=== PATIENT | male | born 1970 | race Caucasian/White ===

== ENCOUNTER 2022-05-24 15:10 | Emergency (ER) | payer OTHER, SELFPAY ==
--- NOTE | ~2022-05-24 | XR_ITS ---
EXAMINATION: XR hand RT min 3V INDICATION: Traumatic amputation of the second finger TECHNIQUE: Three views of the right hand are obtained. COMPARISON: None available FINDINGS: There is traumatic amputation of the second finger at the distal neck of the proximal phala nx. The amputated portion of the finger is included on the examination and demonstrates a comminuted fracture at the distal aspect of the second proximal phalanx extending to the proximal interphalangea l joint. No additional acute osseous findings are evident. IMPRESSION: 1. Traumatic amputation of the second finger at the distal neck of the proximal phalanx. Reviewed, dictated and finalized at location B.
--- NOTE | 2022-05-24 15:20 | ED.UPPEXIN ---
HPI - Extremity Injury (Upper) General Chief Complaint: Extremity Injury, Upper <Nawaf Gilman APRN - Last Filed: 05/24/22 16:23> Stated Complaint: amputation to right first digit <Nawaf Gilman APRN - Last Filed: 05/24/22 16:23> Time Seen by Provider: 05/24/22 15:16 <Nawaf Gilman APRN - Last Filed: 05/24/22 16:23> History of Present Illness HPI narrative: 51-year-old male presents the emergency room for evaluation of injury to his right index finger. Patient states that he was using a saw when he accidentally amputated his right index finger. Patient immediately put the digit on ice prior to arrival. <Nawaf Gilman APRN - Last Filed: 05/24/22 16:23> Related Data Home Medications: Home Medications Medication Instructions Recorded Confirmed famotidine 20 mg tablet (Pepcid) 20 mg PO DAILY 05/24/22 <Nawaf Gilman APRN - Last Filed: 05/24/22 16:23> Allergies/Adverse Reactions: Allergies Allergy/AdvReac Type Severity Reaction Status Date / Time No Known Allergies Allergy Verified 05/24/22 15:24 <Nawaf Gilman APRN - Last Filed: 05/24/22 16:23> Review of Systems Review of Systems: CONSTITUTIONAL: Denies fever, chills, or sweats. EYES: Denies visual changes, redness, or discharge. ENT: Denies rhinorrhea, congestion, sore throat, or otalgia. CARDIOVASCULAR: Denies chest pain, palpitations, or edema. RESPIRATORY: Denies cough or dyspnea. GASTROINTESTINAL: Denies abdominal pain, nausea, vomiting, or diarrhea. GENITOURINARY: Denies dysuria or hematuria. SKIN: Denies rash or itching. MUSCULOSKELETAL: Denies back pain, joint pain, or myalgia. NEUROLOGIC: Denies headache, numbness, dizziness, or weakness. PSYCHIATRIC: Denies anxiety or depression. <Nawaf Gilman APRN - Last Filed: 05/24/22 16:23> Exam Narrative: GENERAL: Well-appearing, well-nourished, no physical limitations, and in no acute distress. HEAD: Normocephalic, atraumatic. EYES: Conjunctivae normal, PERRLA and EOMI. CHEST: Clear to auscultation. No respiratory distress. No wheezes rales or rhonchi. No tenderness. HEART: Regular rate and rhythm. No murmur heard. Normal peripheral pulses. EXTREMITIES: Right hand: Complete amputation of the index finger below the PIP joint. Amputated part is on eyes SKIN: Warm, dry, no rash. No noted wounds NEURO: No focal deficits. Alert and oriented x3. MAEW. CN's II-XI intact bilaterally, normal gait PSYCH: Cooperative. Normal mood and affect. <Nawaf Gilman, CAR DROPPER - Last Filed: 05/24/22 16:23> Course POSTING CLERK/PA Physician Supervision Patient was seen and evaluated by me. Patient was working when he had an amputation of his right index finger just below the interphalangeal joint. He is left-hand dominant. This happened just prior to presentation emergency room he did bring in the amputated part with them. He is up-to-date on his tetanus status. Patient was given IV antibiotics. X-rays were obtained. We emergently try to make arrangements for the patient to be transferred to a hand specialist and [place] for the potential of a reimplantation. <Darwin Garnett, DO - Last Filed: 05/24/22 18:11> Vital Signs Vital signs: Vital Signs Pulse Rate 95 05/24/22 15:21 Respiratory Rate 18 05/24/22 15:21 Blood Pressure 169/114 H 05/24/22 15:21 Pulse Oximetry 94 05/24/22 15:21 Oxygen Delivery Room Air 05/24/22 15:21 Pulse Rate 68 05/24/22 16:20 Respiratory Rate 16 05/24/22 16:20 Blood Pressure 141/98 H 05/24/22 16:20 Pulse Oximetry 94 05/24/22 15:21 Oxygen Delivery Room Air 05/24/22 15:21 <Nawaf Gilman, CAR DROPPER - Last Filed: 05/24/22 16:23> Vital Signs Pulse Rate 95 05/24/22 15:21 Respiratory Rate 18 05/24/22 15:21 Blood Pressure 169/114 H 05/24/22 15:21 Pulse Oximetry 94 05/24/22 15:21 Oxygen Delivery Room Air 05/24/22 15:21 Pulse Rate 68 05/24/22 16:20 Respiratory Rate 16 05/24/22 16:20
[2022-05-24 15:21] VITALS: BP 169/114; PULSE 95; RESP 18; O2SAT 94
[2022-05-24] MEDS: fentaNYL CITRATE INJ (*CRX) 100 MCG/2 ML VIAL 50 MCG IV PUSH (15:36)
[2022-05-24 16:20] VITALS: BP 141/98; PULSE 68; RESP 16
[2022-05-24] MEDS: fentaNYL CITRATE INJ (*CRX) 100 MCG/2 ML VIAL (16:26)
--- NOTE | 2022-05-24 16:30 | PC.NURSE ---
ns not iniated due to pt being transported [facility] to [facility] for amputation.
== END 2022-05-24 16:56 | disposition short-term general hospital (02) ==
PROVIDERS: Emergency Provider Nurse Practitioner Family; PCP Internal Medicine
DX: S68.610A Complete traumatic transphalangeal amputation of right index finger, initial encounter (principal); W31.2XXA Contact with powered woodworking and forming machines, initial encounter
CPT/HCPCS: 73130; 96365; 96375; 96376; 99285; J0690; J3010